=== PATIENT | female | born 1970 | race Caucasian/White ===

== ENCOUNTER 2025-01-12 13:34 | Emergency (ER) | payer MEDICAID ==
[~2025-01-12] VITALS: Ht 167.6 cm; Wt 96.0 kg
[2025-01-12 13:41] VITALS: TEMP 98.3; O2SAT 95
[2025-01-12] MEDS: ACETAMINOPHEN 325MG TABLET PO ONE (13:48)
[2025-01-12 15:35] VITALS: BP 165/80; PULSE 75; RESP 16; O2SAT 99
[2025-01-12] MEDS: IBUPROFEN 600MG TABLET PO ONE (15:41)
== END 2025-01-12 16:09 | disposition home or self-care (01) ==
LOC: ER 13:34
DX: S09.90XA Unspecified injury of head, initial encounter (principal); F31.9 Bipolar disorder, unspecified; F41.9 Anxiety disorder, unspecified; W19.XXXA Unspecified fall, initial encounter; Y93.89 Activity, other specified; Y92.89 Other specified places as the place of occurrence of the external cause; Y99.8 Other external cause status
CPT/HCPCS: 99284